=== PATIENT | female | born 1960 | race African-American/Black ===

== ENCOUNTER → 2016-03-31 | Outpatient (CLI) | payer OTHER ==
[~2016-03-31] MED LIST: AMLODIPINE BESYL5 MG PO; ASPIR 8181 MG PO; HYDROCHLOROTHIA25 M2 PO; HYDROCODONE-AP1 EAC6 PO; NEURONTIN600 MG PO; PRAVACHOL20 MG PO; PRINIVIL20 MG PO; TOPAMAX 25 MG T25 M1 PO; TOPROL XL25 MG PO; TRAMADOL 50 MG50 MG PO
== END ==
LOC: CAT 08:38
DX: R91.1 Solitary pulmonary nodule (principal)

== ENCOUNTER → 2016-10-01 | Outpatient (CLI) | payer OTHER | LOC: CAT 08:24 → RAD 09:32 | DX: R91.8 Other nonspecific abnormal finding of lung field (principal) ==

== ENCOUNTER 2016-12-07 16:31 | Emergency (ER) | payer OTHER ==
[~2016-12-07] VITALS: Ht 157.5 cm; Wt 81.2 kg
[2016-12-07 19:03] VITALS: BP 139/82
== END 2016-12-07 19:11 | disposition home or self-care (01) ==
LOC: ER 16:31
DX: R51 Headache (principal); I10 Essential (primary) hypertension; F17.210 Nicotine dependence, cigarettes, uncomplicated; Z90.711 Acquired absence of uterus with remaining cervical stump

== ENCOUNTER → 2017-02-05 | Outpatient (CLI) | payer OTHER | LOC: RAD 09:49 | DX: R91.8 Other nonspecific abnormal finding of lung field (principal) ==

== ENCOUNTER 2017-06-24 11:48 | Emergency (ER) | payer OTHER ==
[~2017-06-24] VITALS: Ht 157.5 cm; Wt 79.4 kg
--- NOTE | ~2017-06-24 | EKG ---
[place] [address] [facility] [place] [address] ELECTROCARDIOGRAM REPORT Name: VICTOR M PENN [facility] [id number] Admission: 06/24/17 Attend Phys: Discharge: 06/24/17 Date of : 62 Report #: [id number] THIS REPORT FOR: //name// [facility] ED Test Date: 2017-06-24 Test Time: 11:56:48 Pat Name: VICTOR M PENN Department: Room: Gender: F Comparator Operator: 12 : 1960 Requested By: Brandin Paez Order Number: [id number] MD: Vijay Ramirez Measurements Intervals [place] Rate: 92 P: 52 OR: 162 QRS: 62 QRSD: 92 T: 2 QT: 375 QTc: 464 Interpretive Statements Sinus rhythm Baseline wander in lead(s) V6 Compared to ECG 02/15/2016 16:30:44 T-wave abnormality no longer present Electronically Signed On 06-25-2017 8:20:29 CDT by Vijay Ramirez [email or web address] <ELECTRONICALLY SIGNED> By: Vijay Ramirez MD, [facility] 06/25/17 0820 1156 1156 Vijay Ramirez MD, [facility] /EPI
[2017-06-24] MEDS ORDERED: TRAMADOL 50 MG50 MG PO (12:10)
[2017-06-24 12:14] LABS: ABSOLUTE NEUTROPHILS 6.8 thou/uL (1.4-8.2); BASOPHILS 0.7 % (0.0-2.0); EOSINOPHILS 1.6 % (0.0-3.0); HEMATOCRIT 35.4 % (37.0-47.0); HEMOGLOBIN 12.2 gm/dL (12.0-15.0); LYMPHOCYTES 34.6 % (24.0-44.0); MCH 26.8 pg (26.0-34.0); MCHC 34.6 g/dL (28.0-37.0); MCV 77.5 fL (80.0-100.0); PLATELET COUNT 331 thou/uL (150-400); POLYS 56.1 % (36.0-66.0); RBC 4.57 mil/uL (4.20-5.00); RDW 13.4 % (10.5-14.5); WBC 12.1 thou/uL (4.0-11.0)
[2017-06-24 12:28] LABS: ANION GAP 7 mmol/L (7-16); BUN 13 mg/dL (7-18); CALCIUM 9.5 mg/dL (8.5-10.1); CHLORIDE 105 mmol/L (98-107); CO2 29 mmol/L (21-32); CREATININE 0.8 mg/dL (0.6-1.0); GLUCOSE 119 mg/dL (74-106); SODIUM 141 mmol/L (136-145)
[2017-06-24 12:36] LABS: TROPONIN-I < 0.04 ng/mL (<0.06)
[2017-06-24 15:00] VITALS: BP 126/88
== END 2017-06-24 15:01 | disposition home or self-care (01) ==
LOC: ER 11:48
PROVIDERS: Physician Assistant
DX: R07.9 Chest pain, unspecified (principal); I10 Essential (primary) hypertension; F17.210 Nicotine dependence, cigarettes, uncomplicated; Z90.710 Acquired absence of both cervix and uterus

== ENCOUNTER 2017-09-12 16:30 | Emergency (ER) | payer OTHER ==
[~2017-09-12] VITALS: Ht 157.5 cm; Wt 82.6 kg
--- NOTE | ~2017-09-12 | EKG ---
[place] [address] [facility] [place] [address] ELECTROCARDIOGRAM REPORT Name: VICTOR M PENN [facility] [id number] Admission: 09/12/17 Attend Phys: Discharge: 09/12/17 Date of : 62 Report #: [id number] THIS REPORT FOR: //name// [facility] ED Test Date: 2017-09-12 Test Time: 19:18:37 Pat Name: VICTOR M PENN Department: Room: Gender: F Campaign Assistant: MZOOK : 1960 Requested By: Brandin Paez Order Number: [id number] MD: Vijay Ramirez Measurements Intervals [place] Rate: 91 P: 53 [place]: 158 QRS: 62 QRSD: 89 T: 9 QT: 382 QTc: 471 Interpretive Statements Sinus rhythm Nonspecific ST segment abnormality Compared to ECG 06/24/2017 11:56:48 No significant changes Electronically Signed On 09-13-2017 10:18:13 CDT by Vijay Ramirez [email or web address] <ELECTRONICALLY SIGNED> By: Vijay Ramirez MD, [facility] 09/13/17 1018 1917 17 Vijay Ramirez MD, FACC /EPI
[2017-09-12 17:03] LABS: ABSOLUTE NEUTROPHILS 9.9 thou/uL (1.4-8.2); BASOPHILS 1.1 % (0.0-2.0); HEMOGLOBIN 12.6 gm/dL (12.0-15.0); LYMPHOCYTES 19.3 % (24.0-44.0); MCH 26.1 pg (26.0-34.0); MCHC 34.1 g/dL (28.0-37.0); MCV 76.5 fL (80.0-100.0); MONOCYTES 3.9 % (1.0-8.0); PLATELET COUNT 344 thou/uL (150-400); POLYS 75.7 % (36.0-66.0); RBC 4.83 mil/uL (4.20-5.00); RDW 13.7 % (10.5-14.5)
[2017-09-12 17:13] LABS: CREATININE 0.7 mg/dL (0.6-1.0); POTASSIUM 3.4 mmol/L (3.5-5.1)
[2017-09-12 17:18] LABS: ALBUMIN 4.2 g/dL (3.4-5.0); TOTAL BILIRUBIN 0.5 mg/dL (<0.1-1.0); TOTAL PROTEIN 8.3 g/dL (6.4-8.2)
[2017-09-12 18:37] LABS: URINE BILIRUBIN NEGATIVE (Negative); URINE BLOOD 2+ (Negative); URINE CLARITY CLEAR; URINE COLOR YELLOW; URINE GLUCOSE-RANDOM* NEGATIVE (Negative); URINE KETONES NEGATIVE (Negative); URINE LEUKOCYTES-REFLEX NEGATIVE (Negative); URINE NITRITE-REFLEX NEGATIVE (Negative); URINE PROTEIN (DIPSTICK) NEGATIVE (Negative); URINE UROBILINOGEN 0.2 E.U./dl (0.2-1.0)
[2017-09-12 18:45] LABS: BACTERIA-REFLEX None Seen /HPF (None Seen); CASTS None Seen /LPF (None Seen); CRYSTALS None Seen /LPF (None Seen); SQUAMOUS 0-3 Few /LPF (0-3); URINE WBC-REFLEX None Seen /HPF (0-5)
[2017-09-12] MEDS ORDERED: HYDROCODONE-AP1 EAC6 PO (19:53)
[2017-09-12 20:12] VITALS: BP 139/76
== END 2017-09-12 20:13 | disposition home or self-care (01) ==
LOC: ER 16:30
PROVIDERS: Physician Assistant
DX: R10.9 Unspecified abdominal pain (principal); R11.2 Nausea with vomiting, unspecified; I10 Essential (primary) hypertension; Z90.710 Acquired absence of both cervix and uterus; F17.210 Nicotine dependence, cigarettes, uncomplicated

== ENCOUNTER → 2017-12-28 | Outpatient (CLI) | payer OTHER ==
[~2017-12-28] MED LIST changes: +CARAFATE 1 GM TA1 G1 PO; +PROTONIX40 M1 PO
== END ==
LOC: RAD 07:31
DX: R91.1 Solitary pulmonary nodule (principal); R91.8 Other nonspecific abnormal finding of lung field; I77.810 Thoracic aortic ectasia; I10 Essential (primary) hypertension; G43.909 Migraine, unspecified, not intractable, without status migrainosus

== ENCOUNTER 2018-02-05 07:18 | Inpatient (IN) | payer OTHER ==
[2018-02-05] VITALS (7 sets, daily range): BP systolic 111–177; BP diastolic 59–95
[~2018-02-05] VITALS: Ht 157.5 cm; Wt 60.3 kg
--- NOTE | ~2018-02-05 | PATH ---
[facility] [address] [place] [address] PATHOLOGY RPT PROCEDURE Name: VICTOR M PAUL Room #: 449-I DIS IN M.R.#: [id number] Admission: 02/05/18 Date of : 62 Discharge: 02/08/18 Report #: [id number] Path Case #: [id number] [facility] Accession Number: [id number] . 01 Material submitted: . GASTRIC BX R/O H. PYLORI . 01 Clinical history: . Abd pain . 02 Diagnosis: Gastric mucosa, gastric R/O H. pylori, endoscopic biopsy: - Mild chronic inflammation. - Negative for intestinal metaplasia or atrophy. - Negative for Helicobacter pylori (properly controlled immunohistochemical stain performed). (IUV:yvette; 02/08/2018) QMS/02/08/2018 . 02 Electronically signed: . Natalie Kovacs MD, Pathologist NPI- [id number] . 01 Gross description: . The specimen is received in formalin, labeled "Victor M Paul, gastric BX", are three irregular fragments of gutierres soft tissue 0.7 x 0.5 x 0.2 cm in aggregate, entirely submitted in A1. ([facility]; 02/05/2018) SHS/SHS . 02 Pathologist provided ICD-10: K29.50 . 02 CPT . 402819, A27957 Specimen Comment: A courtesy copy of this report has been sent to Specimen Comment: [phone], , . Specimen Comment: Report sent to ,DR BOLTON / DR ASENCIO Specimen Comment: A duplicate report has been generated due to demographic updates. Performed at: 01 [facility] [address] [id number] MD Neal Kenney MD Phone: [phone] Performed at: [id number] [address] [address] PATHOLOGY RPT PROCEDURE Name: VICTOR M PAUL [place] Room #: 449-I DIS IN M.R.#: [id number] Admission: 02/05/18 Date of : 62 Discharge: 02/08/18 Report #: [id number] Path Case #: [id number] MD Natalie Kovacs MD Phone: [phone]
--- NOTE | ~2018-02-05 | EKG ---
[address] [address] ELECTROCARDIOGRAM REPORT Name: FILIVICTOR M FLORIDA Room #: 449-I ADM IN M.R.#: [id number] Admission: 02/05/18 Attend Phys: Cuate Saravia MD Discharge: Date of : 62 Report #: [id number] THIS REPORT FOR: //name// [facility] Test Date: 2018-02-06 Test Time: 11:09:51 Pat Name: VICTOR M PENN Department: Room: [facility] Gender: F Rn Bone Marrow Transplant: THOMAS : 1960 Requested By: Cuate Saravia Order Number: [id number] MD: Adam Sharma Measurements Intervals [place] Rate: 72 P: 54 DE: 136 QRS: 79 QRSD: 94 T: 25 QT: 429 QTc: 470 Interpretive Statements Sinus rhythm Probable left atrial enlargement Compared to ECG 02/04/2018 18:09:56 ST (T wave) deviation no longer present Electronically Signed On 02-07-2018 20:36:30 SENIOR SYSTEMS DEVELOPER by Adam Sharma [email or web address] <ELECTRONICALLY SIGNED> By: Adam Sharma MD 02/07/182035 08 08 Adam Sharma MD /EPI
--- NOTE | ~2018-02-05 | P ---
[facility] [place] [address] PROCEDURE REPORT Name: VICTOR M PENN KOBE Room #: 449-I ADM IN M.R.#: [id number] Admission: 02/05/18 Attend Phys: Cuate Saravia MD Discharge: Date of : 62 Report #: [id number] THIS REPORT FOR: //name// CC: Cuate Mancilla MD DATE OF SERVICE: 02/05/2018 PROCEDURE PERFORMED: Upper endoscopy with biopsies. HISTORY OF PRESENT ILLNESS: The patient is a 57-year-old female with mid epigastric and low substernal chest pain, also with nausea, vomiting, diarrhea. Symptoms began yesterday. She describes the pain as being constant. She denies any dysphagia or odynophagia. She has had a previous upper endoscopy by my partner, Dr. Altamirano in August of this year for similar symptoms, was noted to have esophageal ulcer and gastroduodenitis. The patient was placed on Protonix and Carafate. She then underwent a repeat upper endoscopy by Dr. Figueroa, which was essentially negative. The patient has been continuing to take her Protonix, does not take Carafate any further. She denies any NSAID use. She denies any blood in her stools. She does report possible fevers. Her white count is normal at 9.4. She had a CT scan of the abdomen and pelvis showing circumferential mural thickening and luminal narrowing of the mid stomach with gastric wall thickening reflecting edema, inflammation, possibly reflecting a localized gastritis. Plan is for EGD. DESCRIPTION OF PROCEDURE: The risks and benefits of the procedure were explained to the patient, those risks including but not limited to bleeding, perforation and the risk of sedation. She understood these risks and gave informed consent. Sedation was given using propofol per anesthesia. Next, using a standard Olympus upper endoscope, the scope was placed in the patient's mouth and advanced under direct vision through the esophagus, stomach and into the second portion of the duodenum. The larynx was normal in appearance. The esophagus was normal throughout. The GE junction was normal. Upon entering the stomach, a moderate amount of liquid was noted. This was aspirated away. A total of 300 mL of bilious liquid was aspirated. No obvious ulcerations or thickening of the stomach were noted. There was a mild gastritis. Biopsies were obtained to rule out H. pylori. No evidence of ulcerations or erosions. The pylorus was normal and patent. The duodenal bulb, first and second portion were all normal. The scope was then withdrawn and the procedure terminated. The patient tolerated the procedure well. IMPRESSION: 1. Moderate amount of liquid within the stomach suggesting possible gastroparesis. 2. Mild gastritis. [address] [address] PROCEDURE REPORT Name: VICTOR M PENN KOBE Room #: 449-I [facility] IN M.R.#: [id number] Admission: 02/05/18 Attend Phys: Cuate Saravia MD Discharge: Date of : 62 Report #: [id number]. Otherwise, normal upper endoscopy. RECOMMENDATIONS: 1. Await biopsy results. 2. Suspect the patient may have gastroenteritis. Plan is to admit the patient as she is having continued pain, nausea and vomiting. Supportive care, IV fluids, Zofran, p.r.n. pain medications. She has had a previous cholecystectomy. Her CT from yesterday was otherwise normal. Thank you for allowing me to participate in her care. By: 1200 2139 Madan Rodriguez MD /nt
[~2018-02-05 07:18] MED LIST changes: +NORCO 10-325 T1 EACH PO; +ONDANSETRON HCL4 M2 PO; +SENNA8.6 MG PO
[2018-02-05 09:32] LABS: ABSOLUTE NEUTROPHILS 7.5 thou/uL (1.4-8.2); BASOPHILS 0.6 % (0.0-2.0); HEMATOCRIT 36.9 % (37.0-47.0); HEMOGLOBIN 12.7 gm/dL (12.0-15.0); MCH 26.3 pg (26.0-34.0); MCHC 34.4 g/dL (28.0-37.0); MCV 76.4 fL (80.0-100.0); MONOCYTES 3.6 % (1.0-8.0); PLATELET COUNT 310 thou/uL (150-400); POLYS 79.8 % (36.0-66.0); RBC 4.82 mil/uL (4.20-5.00); RDW 13.8 % (10.5-14.5); WBC 9.4 thou/uL (4.0-11.0)
[2018-02-05 09:41] LABS: CALCIUM 8.9 mg/dL (8.5-10.1); CREATININE 0.7 mg/dL (0.6-1.0); POTASSIUM 3.3 mmol/L (3.5-5.1)
[2018-02-05 09:46] LABS: ALBUMIN 3.8 g/dL (3.4-5.0); TOTAL BILIRUBIN 0.4 mg/dL (<0.1-1.0); TOTAL PROTEIN 7.5 g/dL (6.4-8.2)
[2018-02-05 11:50] LABS: MAGNESIUM 1.8 mg/dL (1.8-2.4)
[2018-02-06 03:59] VITALS: BP 140/82
[2018-02-06 05:48] LABS: ABSOLUTE NEUTROPHILS 7.7 thou/uL (1.4-8.2); BASOPHILS 0.4 % (0.0-2.0); EOSINOPHILS 0.1 % (0.0-3.0); HEMATOCRIT 35.3 % (37.0-47.0); LYMPHOCYTES 37.3 % (24.0-44.0); MCH 26.2 pg (26.0-34.0); MCV 77.1 fL (80.0-100.0); MONOCYTES 10.4 % (1.0-8.0); PLATELET COUNT 298 thou/uL (150-400); POLYS 51.8 % (36.0-66.0); RBC 4.58 mil/uL (4.20-5.00); RDW 14.1 % (10.5-14.5); WBC 14.8 thou/uL (4.0-11.0)
[2018-02-06 06:06] LABS: ANION GAP 9 mmol/L (7-16); BUN 13 mg/dL (7-18); CALCIUM 9.2 mg/dL (8.5-10.1); CHLORIDE 102 mmol/L (98-107); CO2 27 mmol/L (21-32); CREATININE 0.7 mg/dL (0.6-1.0); GLUCOSE 69 mg/dL (74-106); MAGNESIUM 2.4 mg/dL (1.8-2.4); POTASSIUM 3.5 mmol/L (3.5-5.1); SODIUM 138 mmol/L (136-145); TROPONIN-I <0.06 ng/mL (<0.06)
[2018-02-06 07:31] VITALS: BP 172/97
[2018-02-06 14:40] LABS: % SATURATION 45 % (20-39); IRON 127 ug/dL (50-170); TIBC 284 ug/dL (250-450)
[2018-02-06 16:51] VITALS: BP 172/88
[2018-02-06 17:08] VITALS: BP 172/88
[2018-02-06 17:19] VITALS: BP 188/79
[2018-02-06 19:00] VITALS: BP 116/69
[2018-02-07 04:30] VITALS: BP 119/76
[2018-02-07 05:56] LABS: HEMATOCRIT 37.4 % (37.0-47.0); HEMOGLOBIN 12.9 gm/dL (12.0-15.0); MCH 26.4 pg (26.0-34.0); MCHC 34.5 g/dL (28.0-37.0); MCV 76.6 fL (80.0-100.0); RBC 4.89 mil/uL (4.20-5.00); RDW 13.9 % (10.5-14.5); WBC 12.7 thou/uL (4.0-11.0)
[2018-02-07 08:00] VITALS: BP 125/62
[2018-02-07 15:13] VITALS: BP 108/65
[2018-02-07 19:09] VITALS: BP 120/79
[2018-02-08 02:15] VITALS: BP 136/77
[2018-02-08 06:28] LABS: HEMATOCRIT 37.1 % (37.0-47.0); HEMOGLOBIN 12.4 gm/dL (12.0-15.0); MCH 25.9 pg (26.0-34.0); MCHC 33.4 g/dL (28.0-37.0); MCV 77.6 fL (80.0-100.0); RBC 4.78 mil/uL (4.20-5.00); RDW 13.6 % (10.5-14.5); WBC 9.6 thou/uL (4.0-11.0)
[2018-02-08 06:32] LABS: CALCIUM 9.1 mg/dL (8.5-10.1); CREATININE 0.7 mg/dL (0.6-1.0); MAGNESIUM 1.8 mg/dL (1.8-2.4); POTASSIUM 3.8 mmol/L (3.5-5.1)
[2018-02-08 07:28] VITALS: BP 135/77
[2018-02-08] MEDS ORDERED: PROTONIX40 M1 PO (09:51)
[2018-02-08 10:06] VITALS: BP 135/77
== END 2018-02-08 10:52 | disposition home or self-care (01) | DRG 392 ==
LOC: ER 07:18 → EROBS 09:22 → 4W 09:22 → ENTRNSPT 02-08 10:32 → EDTRNSPTSTS 02-08 10:39 → 4W 02-08 10:52
PROVIDERS: Emergency Medicine; Internal Medicine; Nurse Practitioner; Specialist
PROC: 0DB68ZX Excision of Stomach, Via Natural or Artificial Opening Endoscopic, Diagnostic (ICD-10-PCS; principal; 2018-02-05)
DX: A08.4 Viral intestinal infection, unspecified (principal); K29.70 Gastritis, unspecified, without bleeding; I10 Essential (primary) hypertension; E78.5 Hyperlipidemia, unspecified; E87.6 Hypokalemia; F17.210 Nicotine dependence, cigarettes, uncomplicated; Z87.11 Personal history of peptic ulcer disease; Z90.49 Acquired absence of other specified parts of digestive tract; Z90.710 Acquired absence of both cervix and uterus; Z82.49 Family history of ischemic heart disease and other diseases of the circulatory system; Z71.6 Tobacco abuse counseling
CPT/HCPCS: 10040; 62110; 62900; 70005

== ENCOUNTER 2018-02-14 15:44 | Inpatient (IN) | payer OTHER ==
[~2018-02-14] VITALS: Ht 157.5 cm; Wt 81.2 kg
--- NOTE | ~2018-02-14 | EKG ---
[address] [place] [address] ELECTROCARDIOGRAM REPORT Name: VICTOR M PENN KOBE Room #: 349-I ADM IN M.R.#: [id number] Admission: 02/14/18 Attend Phys: Aj Kay MD Discharge: Date of : 62 Report #: [id number] THIS REPORT FOR: //name// [facility] ED Test Date: 2018-02-14 Test Time: 16:04:17 Pat Name: VICTOR M PENN Department: Room: 349 Gender: F Grinding Machine Operator Automatic: ivan : 1960 Requested By: Deana Delatorre Order Number: [id number] MD: Milton Srivastava Measurements Intervals [place] Rate: 92 P: 59 TX: 144 QRS: 60 QRSD: 82 T: 17 QT: 366 QTc: 453 Interpretive Statements Sinus rhythm Left atrial enlargement Baseline wander in lead(s) V2 Compared to ECG 02/06/2018 11:09:51 No significant changes Electronically Signed On 02-14-2018 23:56:13 GEAR ROLLER by Milton Srivastava [email or web address] <ELECTRONICALLY SIGNED> By: Milton Srivastava MD 02/14/18 2356 1604 1604 Milton Srivastava MD /EPI
[2018-02-14 15:52] VITALS: BP 174/109
[2018-02-14 16:18] LABS: ABSOLUTE NEUTROPHILS 10.5 thou/uL (1.4-8.2); BASOPHILS 0.7 % (0.0-2.0); HEMATOCRIT 37.4 % (37.0-47.0); HEMOGLOBIN 12.9 gm/dL (12.0-15.0); LYMPHOCYTES 11.9 % (24.0-44.0); MCH 26.3 pg (26.0-34.0); MCHC 34.4 g/dL (28.0-37.0); MCV 76.5 fL (80.0-100.0); MONOCYTES 2.1 % (1.0-8.0); PLATELET COUNT 335 thou/uL (150-400); POLYS 85.3 % (36.0-66.0); RBC 4.89 mil/uL (4.20-5.00); RDW 13.7 % (10.5-14.5); WBC 12.3 thou/uL (4.0-11.0)
[2018-02-14 16:40] LABS: ANION GAP 10 mmol/L (7-16); BUN 9 mg/dL (7-18); CHLORIDE 102 mmol/L (98-107); CO2 26 mmol/L (21-32); CREATININE 0.8 mg/dL (0.6-1.0); GLUCOSE 149 mg/dL (74-106); POTASSIUM 3.4 mmol/L (3.5-5.1); SODIUM 138 mmol/L (136-145)
[2018-02-14 16:49] LABS: LIPASE 65 U/L (73-393); SGOT 19 U/L (15-37); SGPT 39 U/L (30-65); TOTAL BILIRUBIN 0.4 mg/dL (<0.1-1.0); TROPONIN-I <0.06 ng/mL (<0.06)
[2018-02-14 20:54] VITALS: BP 170/96
[2018-02-14 21:11] VITALS: BP 170/96
[2018-02-15 04:28] VITALS: BP 149/76
[2018-02-15 05:31] LABS: HEMATOCRIT 36.1 % (37.0-47.0); HEMOGLOBIN 12.1 gm/dL (12.0-15.0); MCH 25.8 pg (26.0-34.0); MCHC 33.6 g/dL (28.0-37.0); MCV 76.8 fL (80.0-100.0); RBC 4.7 mil/uL (4.20-5.00); RDW 13.9 % (10.5-14.5); WBC 13.7 thou/uL (4.0-11.0)
[2018-02-15 05:41] LABS: CALCIUM 9.1 mg/dL (8.5-10.1); CREATININE 0.6 mg/dL (0.6-1.0); POTASSIUM 3.1 mmol/L (3.5-5.1)
[2018-02-15 08:00] VITALS: BP 156/66
[2018-02-15 19:48] VITALS: BP 158/99
[2018-02-16 04:15] LABS: BASOPHILS 0.3 % (0.0-2.0); EOSINOPHILS 0.1 % (0.0-3.0); HEMATOCRIT 37.6 % (37.0-47.0); LYMPHOCYTES 16.4 % (24.0-44.0); MCH 26.5 pg (26.0-34.0); MCHC 34.5 g/dL (28.0-37.0); MCV 76.8 fL (80.0-100.0); MONOCYTES 6.3 % (1.0-8.0); PLATELET COUNT 343 thou/uL (150-400); POLYS 76.9 % (36.0-66.0); RBC 4.89 mil/uL (4.20-5.00); RDW 13.6 % (10.5-14.5)
[2018-02-16 04:40] LABS: CALCIUM 9.5 mg/dL (8.5-10.1); CREATININE 0.6 mg/dL (0.6-1.0); POTASSIUM 3.4 mmol/L (3.5-5.1)
[2018-02-16 07:44] VITALS: BP 168/93
[2018-02-16 12:57] VITALS: BP 168/93
[2018-02-16 16:35] VITALS: BP 150/114
[2018-02-16 18:45] VITALS: BP 168/107
[2018-02-16 23:06] VITALS: BP 171/95
[2018-02-17 08:22] VITALS: BP 139/82
[2018-02-17 22:08] VITALS: BP 120/80
[2018-02-18 07:16] VITALS: BP 154/96
[2018-02-18] MEDS ORDERED: REGLAN 10 MG TA10 MG PO (16:16)
[2018-02-18] MEDS ORDERED: BENTYL 10 MG CA10 M1 PO (16:16)
[2018-02-18] MEDS ORDERED: AMITRIPTYLINE H10 M1 PO (16:16)
[2018-02-18] MEDS ORDERED: ACETAMINOPHEN325 M1 PO (16:16)
[2018-02-18 18:12] VITALS: BP 154/96
== END 2018-02-18 18:40 | disposition home or self-care (01) | DRG 391 ==
LOC: ER 15:44 → EROBS 20:04 → 4E 20:04 → 3W 21:06 → 4E 02-15 07:55 → SICU 02-16 19:02
PROVIDERS: Family Medicine; Nurse Practitioner Family; Student in an Organized Health Care Education/Training Program
DX: A08.4 Viral intestinal infection, unspecified (principal); E43 Unspecified severe protein-calorie malnutrition; K58.9 Irritable bowel syndrome, unspecified; I10 Essential (primary) hypertension; E78.5 Hyperlipidemia, unspecified; F17.210 Nicotine dependence, cigarettes, uncomplicated; D72.829 Elevated white blood cell count, unspecified; K31.84 Gastroparesis; E87.6 Hypokalemia; K44.9 Diaphragmatic hernia without obstruction or gangrene; K27.9 Peptic ulcer, site unspecified, unspecified as acute or chronic, without hemorrhage or perforation; Z90.49 Acquired absence of other specified parts of digestive tract; Z88.8 Allergy status to other drugs, medicaments and biological substances; Z91.041 Radiographic dye allergy status; Z82.49 Family history of ischemic heart disease and other diseases of the circulatory system; Z71.6 Tobacco abuse counseling; Z28.21 Immunization not carried out because of patient refusal
CPT/HCPCS: 10080; 10084; 15002

== ENCOUNTER 2018-03-22 18:25 | Emergency (ER) | payer OTHER ==
[~2018-03-22] VITALS: Ht 157.5 cm; Wt 79.8 kg
[~2018-03-22 18:25] MED LIST changes: +ACETAMINOPHEN325 M1 PO; +AMITRIPTYLINE H10 M1 PO; +BENTYL 10 MG CA10 M1 PO; +REGLAN 10 MG TA10 MG PO
[2018-03-22 18:55] LABS: URINE CLARITY CLEAR; URINE COLOR YELLOW; URINE PROTEIN (DIPSTICK) 2+ (Negative); URINE SPECIFIC GRAVITY > 1.030 (1.005-1.035)
[2018-03-22 18:56] LABS: URINE BILIRUBIN NEGATIVE (Negative); URINE BLOOD 3+ (Negative); URINE GLUCOSE-RANDOM* NEGATIVE (Negative); URINE KETONES TRACE (Negative); URINE LEUKOCYTES-REFLEX NEGATIVE (Negative); URINE NITRITE-REFLEX NEGATIVE (Negative); URINE UROBILINOGEN 0.2 E.U./dl (0.2-1.0)
[2018-03-22] MEDS ORDERED: ADULT ASPIRIN81 MG PO (18:57)
[2018-03-22 19:04] LABS: AMORPHOUS URATES Moderate /LPF (None Seen); BACTERIA-REFLEX None Seen /HPF (None Seen); HYALINE CASTS 0-3 Few /LPF (None Seen); MUCUS >6 Heavy strn/LPF (None Seen); SQUAMOUS >10 Many /LPF (0-3); URINE RBC >20 Many /HPF (0-2); URINE WBC-REFLEX 0-5 Rare /HPF (0-5)
[2018-03-22 19:23] LABS: ABSOLUTE NEUTROPHILS 9.1 thou/uL (1.4-8.2); BASOPHILS 0.9 % (0.0-2.0); HEMATOCRIT 36.4 % (37.0-47.0); HEMOGLOBIN 12.8 gm/dL (12.0-15.0); LYMPHOCYTES 14.2 % (24.0-44.0); MCH 26.8 pg (26.0-34.0); MCHC 35.1 g/dL (28.0-37.0); MCV 76.4 fL (80.0-100.0); MONOCYTES 3.3 % (1.0-8.0); PLATELET COUNT 339 thou/uL (150-400); POLYS 81.6 % (36.0-66.0); RBC 4.76 mil/uL (4.20-5.00); RDW 13.8 % (10.5-14.5); WBC 11.2 thou/uL (4.0-11.0)
[2018-03-22 19:31] LABS: CALCIUM 9.5 mg/dL (8.5-10.1); CREATININE 0.8 mg/dL (0.6-1.0); POTASSIUM 3.2 mmol/L (3.5-5.1)
[2018-03-22 19:36] LABS: TOTAL BILIRUBIN 0.4 mg/dL (<0.1-1.0)
[2018-03-22] MEDS ORDERED: PHENERGAN 25 MG25 M1 PO (20:15)
[2018-03-22 20:41] VITALS: BP 130/75
--- NOTE | 2018-03-23 10:06 | EKG ---
[facility] [address] [facility] [address] [place] [address] ELECTROCARDIOGRAM REPORT Name: VICTOR M PENN Room #: [facility]#: [id number] Admission: 03/22/18 Attend Phys: Discharge: 03/22/18 Date of : 62 Report #: [id number] THIS REPORT FOR: //name// [facility] ED Test Date: 2018-03-22 Test Time: 19:15:13 Pat Name: VICTOR M PENN Department: Room: Gender: F Senior Electronics Engineer: MITA : 1960 Requested By: Barndin Paez Order Number: [id number] MD: Vijay Ramirez Measurements Intervals [place] Rate: 86 P: 55 [place]: 157 QRS: 67 QRSD: 84 T: -9 QT: 421 QTc: 504 Interpretive Statements Sinus rhythm Borderline T abnormalities, diffuse leads Borderline prolonged QT interval Compared to ECG 02/14/2018 16:04:17 T-wave abnormality now present Electronically Signed On 03-23-2018 10:05:49 DRAWBENCH OPERATOR HELPER by Vijay Ramirez [email or web address] <ELECTRONICALLY SIGNED> By: Vijay Ramirez MD, [facility] 03/23/18 1005 14 14 Vijay Ramirez MD, [facility] /EPI
== END 2018-03-22 20:47 | disposition home or self-care (01) ==
LOC: ER 18:25
PROVIDERS: Physician Assistant
DX: K31.84 Gastroparesis (principal); I10 Essential (primary) hypertension; E78.5 Hyperlipidemia, unspecified; Z90.49 Acquired absence of other specified parts of digestive tract; F17.210 Nicotine dependence, cigarettes, uncomplicated; Z91.041 Radiographic dye allergy status

== ENCOUNTER 2018-03-23 22:17 | Emergency (ER) | payer OTHER ==
[~2018-03-23] VITALS: Ht 157.5 cm; Wt 79.8 kg
[~2018-03-23 22:17] MED LIST changes: +ADULT ASPIRIN81 MG PO; +PHENERGAN 25 MG25 M1 PO
[2018-03-23 23:26] LABS: ABSOLUTE NEUTROPHILS 10.7 thou/uL (1.4-8.2); BASOPHILS 0.4 % (0.0-2.0); HEMATOCRIT 38.8 % (37.0-47.0); HEMOGLOBIN 13.4 gm/dL (12.0-15.0); LYMPHOCYTES 18.8 % (24.0-44.0); MCH 26.4 pg (26.0-34.0); MCHC 34.4 g/dL (28.0-37.0); MCV 76.6 fL (80.0-100.0); MONOCYTES 4.9 % (1.0-8.0); PLATELET COUNT 366 thou/uL (150-400); POLYS 75.9 % (36.0-66.0); RBC 5.07 mil/uL (4.20-5.00); RDW 13.4 % (10.5-14.5); WBC 14.1 thou/uL (4.0-11.0)
[2018-03-23 23:30] LABS: CALCIUM 9.6 mg/dL (8.5-10.1); CREATININE 0.7 mg/dL (0.6-1.0); POTASSIUM 3.3 mmol/L (3.5-5.1)
[2018-03-23 23:36] LABS: ALBUMIN 4.3 g/dL (3.4-5.0); TOTAL BILIRUBIN 0.4 mg/dL (<0.1-1.0); TOTAL PROTEIN 8.5 g/dL (6.4-8.2)
[2018-03-24 03:18] LABS: URINE BILIRUBIN NEGATIVE (Negative); URINE BLOOD 3+ (Negative); URINE CLARITY CLEAR; URINE COLOR YELLOW; URINE GLUCOSE-RANDOM* NEGATIVE (Negative); URINE KETONES NEGATIVE (Negative); URINE LEUKOCYTES-REFLEX NEGATIVE (Negative); URINE NITRITE-REFLEX NEGATIVE (Negative); URINE PROTEIN (DIPSTICK) 1+ (Negative); URINE SPECIFIC GRAVITY 1.025 (1.005-1.035); URINE UROBILINOGEN 0.2 E.U./dl (0.2-1.0)
[2018-03-24] MEDS ORDERED: ULTRAM 50MG TAB50 MG PO (03:20)
[2018-03-24] MEDS ORDERED: ZOFRAN ODT4 MG DISSOLVE (03:20)
[2018-03-24] MEDS ORDERED: PROTONIX40 M1 PO (03:20)
[2018-03-24 03:27] LABS: CASTS None Seen /LPF (None Seen); MUCUS 0-3 Light strn/LPF (None Seen); SQUAMOUS 0-3 Few /LPF (0-3); URINE RBC 3-10 Few /HPF (0-2); URINE WBC-REFLEX 0-5 Rare /HPF (0-5)
[2018-03-24 03:28] LABS: BACTERIA-REFLEX 1-9 Few /HPF (None Seen); CRYSTALS None Seen /LPF (None Seen)
[2018-03-24] MEDS ORDERED: CARAFATE 1 GM TA1 G1 PO (03:39)
[2018-03-24 03:51] VITALS: BP 145/88
--- NOTE | 2018-03-24 08:12 | EKG ---
[place] [address] [employer] [facility] [place] [address] ELECTROCARDIOGRAM REPORT Name: VICTOR M PENN Room #: DEP [facility]#: [id number] Admission: 03/23/18 Attend Phys: Discharge: 03/24/18 Date of : 62 Report #: [id number] THIS REPORT FOR: //name// [facility] ED Test Date: 2018-03-23 Test Time: 22:23:03 Pat Name: VICTOR M PENN Department: Room: Gender: F Game Operator: MITA : 1960 Requested By: Jordan Arreguin Order Number: [id number] MD: Vijay Ramirez Measurements Intervals [place] Rate: 93 P: 67 VT: 138 QRS: 72 QRSD: 86 T: -13 QT: 378 QTc: 471 Interpretive Statements Sinus rhythm Left atrial enlargement Nonspecific ST segment abnormality Compared to ECG 03/22/2018 19:15:13 Nonspecific change in the ST and T-wave segments Electronically Signed On 03-24-2018 8:12:33 FLOODPLAIN MANAGER by Vijay Ramirez [email or web address] <ELECTRONICALLY SIGNED> By: Vijay Ramirez MD, [facility] 03/24/1812 22 22 Vijay Ramirez MD, [facility] /EPI
== END 2018-03-24 03:53 | disposition home or self-care (01) ==
LOC: ER 22:17
PROVIDERS: Emergency Medicine
DX: K29.70 Gastritis, unspecified, without bleeding (principal); I10 Essential (primary) hypertension; E78.5 Hyperlipidemia, unspecified; Z90.49 Acquired absence of other specified parts of digestive tract; F17.210 Nicotine dependence, cigarettes, uncomplicated; Z91.041 Radiographic dye allergy status

== ENCOUNTER 2019-06-02 16:58 | Emergency (ER) | payer OTHER ==
[~2019-06-02] VITALS: Ht 157.5 cm; Wt 80.3 kg
[~2019-06-02 16:58] MED LIST changes: +ULTRAM 50MG TAB50 MG PO; +ZOFRAN ODT4 MG DISSOLVE
[2019-06-02] MEDS ORDERED: TOPROL XL25 MG PO (17:13)
[2019-06-02] MEDS ORDERED: IMDUR 30 MG TAB30 M1 PO ×2 (17:14)
[2019-06-02] MEDS ORDERED: BENTYL 10 MG CA10 MG PO (17:14)
[2019-06-02 18:00] LABS: AMP/METHAMP Negative (Negative); BARBITURATES Negative (Negative); BENZODIAZEPINES Negative (Negative); COCAINE Negative (Negative); METHADONE Negative (Negative); OPIATES POSITIVE (Negative); PCP Negative (Negative)
[2019-06-02 18:41] LABS: ABSOLUTE NEUTROPHILS 4.8 thou/uL (1.4-8.2); EOSINOPHILS 1.3 % (0.0-3.0); HEMATOCRIT 36.2 % (37.0-47.0); HEMOGLOBIN 12.1 gm/dL (12.0-15.0); LYMPHOCYTES 39.2 % (24.0-44.0); MCH 26.4 pg (26.0-34.0); MCHC 33.3 g/dL (28.0-37.0); MCV 79.2 fL (80.0-100.0); MONOCYTES 7.7 % (1.0-8.0); PLATELET COUNT 313 thou/uL (150-400); POLYS 50.8 % (36.0-66.0); RBC 4.58 mil/uL (4.20-5.00); RDW 14.2 % (10.5-14.5); WBC 9.5 thou/uL (4.0-11.0)
[2019-06-02 18:44] LABS: ANION GAP 6 mmol/L (7-16); BUN 15 mg/dL (7-18); CALCIUM 9.2 mg/dL (8.5-10.1); CHLORIDE 105 mmol/L (98-107); CO2 28 mmol/L (21-32); CREATININE 0.7 mg/dL (0.6-1.0); GLUCOSE 98 mg/dL (74-106); POTASSIUM 3.9 mmol/L (3.5-5.1); SODIUM 139 mmol/L (136-145)
[2019-06-02 18:55] LABS: ALBUMIN 3.6 g/dL (3.4-5.0); MAGNESIUM 1.8 mg/dL (1.8-2.4); SGOT 26 U/L (15-37); SGPT 36 U/L (30-65); TOTAL BILIRUBIN 0.5 mg/dL (<0.1-1.0); TOTAL PROTEIN 7.4 g/dL (6.4-8.2); TROPONIN-I <0.06 ng/mL (<0.06)
[2019-06-02 21:46] VITALS: BP 148/89
--- NOTE | 2019-06-03 09:11 | EKG ---
[facility] [place] [address] ELECTROCARDIOGRAM REPORT Name: VICTOR M PENN [facility] [id number] Admission: 06/02/19 Attend Phys: Discharge: 06/02/19 Date of : 62 Report #: [id number] THIS REPORT FOR: cc: Giovanna Mancilla MD, Michelle R. MD Lundgren,Vijay Hernandez MD [facility] THIS REPORT FOR: //name// [facility] ED Test Date: 2019-06-02 Test Time: 18:02:09 Pat Name: VICTOR M PENN Department: Room: Gender: Arts And Crafts Teacher: [facility] : 1960 Requested By: Markie Bone Order Number: [id number] MD: Vijay Ramirez Measurements Intervals [place] Rate: 73 P: 56 AR: 150 QRS: 63 QRSD: 94 T: 34 QT: 405 QTc: 447 Interpretive Statements Sinus arrhythmia No significant abnormality Compared to ECG 03/23/2018 22:23:03 No significant change was found Electronically Signed On 06-03-2019 9:10:30 CDT by Vijay Ramirez [email or web address] <ELECTRONICALLY SIGNED> By: Vijay Ramirez MD, FAC 06/03/19 0910 180 01 Vijay Ramirez MD, [facility] /EPI
== END 2019-06-02 21:48 | disposition home or self-care (01) ==
LOC: ER 16:58
PROVIDERS: Emergency Medicine
DX: R07.89 Other chest pain (principal); R42 Dizziness and giddiness; I10 Essential (primary) hypertension; E78.5 Hyperlipidemia, unspecified; F17.210 Nicotine dependence, cigarettes, uncomplicated; Z91.041 Radiographic dye allergy status; Z88.8 Allergy status to other drugs, medicaments and biological substances; Z79.82 Long term (current) use of aspirin; Z79.899 Other long term (current) drug therapy

== ENCOUNTER 2019-11-21 14:35 | Emergency (ER) | payer OTHER ==
[~2019-11-21] VITALS: Ht 157.5 cm; Wt 79.4 kg
[~2019-11-21 14:35] MED LIST changes: +BENTYL 10 MG CA10 MG PO; +IMDUR 30 MG TAB30 M1 PO
[2019-11-21] MEDS ORDERED: NAPROSYN500 MG PO (19:19)
[2019-11-21 19:40] VITALS: BP 134/80
== END 2019-11-21 19:40 | disposition home or self-care (01) ==
LOC: ER 14:35
DX: M25.461 Effusion, right knee (principal); M79.651 Pain in right thigh; M25.551 Pain in right hip; R42 Dizziness and giddiness; R07.9 Chest pain, unspecified; I10 Essential (primary) hypertension; E78.5 Hyperlipidemia, unspecified; F17.210 Nicotine dependence, cigarettes, uncomplicated; Z91.041 Radiographic dye allergy status; Z88.8 Allergy status to other drugs, medicaments and biological substances; Z79.82 Long term (current) use of aspirin; Z79.899 Other long term (current) drug therapy; Z90.49 Acquired absence of other specified parts of digestive tract; Z90.711 Acquired absence of uterus with remaining cervical stump

== ENCOUNTER → 2019-12-26 | Outpatient (CLI) | payer OTHER ==
[~2019-12-26] MED LIST changes: +NAPROSYN500 MG PO
== END ==
LOC: RAD 12:25
PROVIDERS: ATTEND Internal Medicine
DX: R06.02 Shortness of breath (principal)

== ENCOUNTER → 2020-02-02 | Outpatient (CLI) | payer OTHER | LOC: NUC 02-01 08:05 | PROVIDERS: ATTEND Internal Medicine | DX: I25.10 Atherosclerotic heart disease of native coronary artery without angina pectoris (principal) ==

== ENCOUNTER 2020-04-05 17:05 | Emergency (ER) | payer OTHER ==
[~2020-04-05] VITALS: Ht 157.5 cm; Wt 72.6 kg
[2020-04-05] MEDS ORDERED: AZITHROMYCIN 2250 MG PO (17:57)
[2020-04-05] MEDS ORDERED: BENTYL 10 MG CA10 M1 PO (17:57)
[2020-04-05 18:14] LABS: ABSOLUTE NEUTROPHILS 7.3 thou/uL (1.4-8.2); BASOPHILS 1.4 % (0.0-2.0); EOSINOPHILS 0.3 % (0.0-3.0); HEMATOCRIT 35.6 % (37.0-47.0); MCH 26.1 pg (26.0-34.0); MCHC 33.7 g/dL (28.0-37.0); MCV 77.4 fL (80.0-100.0); MONOCYTES 8.4 % (1.0-8.0); PLATELET COUNT 349 thou/uL (150-400); POLYS 62.9 % (36.0-66.0); RBC 4.59 mil/uL (4.20-5.00); RDW 13.7 % (10.5-14.5); WBC 11.7 thou/uL (4.0-11.0)
[2020-04-05 18:25] LABS: ANION GAP 9 mmol/L (7-16); BUN 11 mg/dL (7-18); CHLORIDE 103 mmol/L (98-107); CO2 28 mmol/L (21-32); CREATININE 0.8 mg/dL (0.6-1.0); GLUCOSE 95 mg/dL (74-106); POTASSIUM 3.4 mmol/L (3.5-5.1); SODIUM 140 mmol/L (136-145)
[2020-04-05 18:30] LABS: TROPONIN-I <0.06 ng/mL (<0.06)
[2020-04-05] MEDS ORDERED: ATIVAN0.5 M1 PO (20:44)
[2020-04-05] MEDS ORDERED: ONDANSETRON HCL4 M2 PO (20:44)
[2020-04-05 20:47] VITALS: BP 112/54
--- NOTE | 2020-04-06 07:20 | EKG ---
[place] [address] [facility] [place] [address] ELECTROCARDIOGRAM REPORT Name: VICTOR M PENN [facility] [id number] Admission: 04/05/20 Attend Phys: Discharge: 04/05/20 Date of : 62 Report #: [id number] [facility] ED Test Date: 2020-04-05 Test Time: 17:57:37 Pat Name: VICTOR M PENN Department: Room: Gender: F Actuarial Internship: royce : 1960 Requested By: Dimitrios Mclain Order Number: [id number] MD: Catrachito Webb Measurements Intervals [place] Rate: 81 P: 67 MD: 160 QRS: 64 QRSD: 88 T: 5 QT: 387 QTc: 450 Interpretive Statements Sinus rhythm Left atrial enlargement Compared to ECG 06/02/2019 18:02:09 Atrial abnormality now present Sinus arrhythmia no longer present Electronically Signed On 04-06-2020 7:20:40 WEAVER DOBBY LOOM by Catrachito Webb [email or web address] <ELECTRONICALLY SIGNED> By: Catrachito Webb MD, [facility] 04/06/20 0720 1757 1757 Catrachito Webb MD, FACC /EPI
== END 2020-04-05 20:52 | disposition home or self-care (01) ==
LOC: ER 17:05
PROVIDERS: Nurse Practitioner
DX: R42 Dizziness and giddiness (principal); R51.9 Headache, unspecified; I10 Essential (primary) hypertension; E78.5 Hyperlipidemia, unspecified; F17.210 Nicotine dependence, cigarettes, uncomplicated; Z91.041 Radiographic dye allergy status; Z79.899 Other long term (current) drug therapy; Z79.2 Long term (current) use of antibiotics; Z87.11 Personal history of peptic ulcer disease; Z90.49 Acquired absence of other specified parts of digestive tract; Z98.890 Other specified postprocedural states

== ENCOUNTER 2020-06-12 18:11 | Emergency (ER) | payer OTHER ==
[~2020-06-12] VITALS: Ht 157.5 cm; Wt 74.8 kg
[~2020-06-12 18:11] MED LIST changes: +ATIVAN0.5 M1 PO; +AZITHROMYCIN 2250 MG PO
[2020-06-12 19:16] LABS: ABSOLUTE NEUTROPHILS 6.7 thou/uL (1.4-8.2); BASOPHILS 1.7 % (0.0-2.0); EOSINOPHILS 1.3 % (0.0-3.0); HEMATOCRIT 34.9 % (37.0-47.0); HEMOGLOBIN 11.7 gm/dL (12.0-15.0); LYMPHOCYTES 32.6 % (24.0-44.0); MCH 26.5 pg (26.0-34.0); MCHC 33.6 g/dL (28.0-37.0); MCV 78.8 fL (80.0-100.0); MONOCYTES 5.9 % (1.0-8.0); PLATELET COUNT 347 thou/uL (150-400); POLYS 58.5 % (36.0-66.0); RBC 4.42 mil/uL (4.20-5.00); RDW 13.7 % (10.5-14.5); WBC 11.5 thou/uL (4.0-11.0)
[2020-06-12 19:33] LABS: ANION GAP 10 mmol/L (7-16); BUN 16 mg/dL (7-18); CALCIUM 9.7 mg/dL (8.5-10.1); CHLORIDE 101 mmol/L (98-107); CO2 27 mmol/L (21-32); CREATININE 0.8 mg/dL (0.6-1.0); GLUCOSE 115 mg/dL (74-106); POTASSIUM 3.7 mmol/L (3.5-5.1); SODIUM 138 mmol/L (136-145)
[2020-06-12 19:44] LABS: ALBUMIN 4.1 g/dL (3.4-5.0); LIPASE 89 U/L (73-393); SGOT 21 U/L (15-37); SGPT 23 U/L (14-59); TOTAL BILIRUBIN 0.2 mg/dL (0.2-1.0); TOTAL PROTEIN 8.2 g/dL (6.4-8.2); TROPONIN-I <0.06 ng/mL (<0.06)
[2020-06-12] MEDS ORDERED: NORCO5 PO (20:50)
[2020-06-12 21:07] VITALS: BP 128/82
--- NOTE | 2020-06-13 07:03 | EKG ---
[facility] [address] [facility] [place] [address] ELECTROCARDIOGRAM REPORT Name: VICTOR M PENN Room #: DEP [facility]#: [id number] Admission: 06/12/20 Attend Phys: Discharge: 06/12/20 Date of : 62 Report #: [id number] [facility] Test Date: 2020-06-12 Test Time: 18:24:57 Pat Name: VICTOR M PENN Department: Room: Gender: F Social Media Analyst: MITA : 1960 Requested By: Nicolás Duarte Order Number: [id number] MD: Catrachito Webb Measurements Intervals [place] Rate: 94 P: 72 NE: 152 QRS: 61 QRSD: 83 T: -17 QT: 355 QTc: 444 Interpretive Statements Sinus rhythm Left atrial enlargement Low voltage, precordial leads Borderline T abnormalities, inferior leads Compared to ECG 04/05/2020 17:57:37 Low QRS voltage now present T-wave abnormality now present Electronically Signed On 06-13-2020 7:03:25 CDT by Catrachito Webb [email or web address] <ELECTRONICALLY SIGNED> By: Catrachito Webb MD, [facility] 06/13/20702 23 23 Catrachito Webb MD, [facility] /EPI
== END 2020-06-12 21:07 | disposition home or self-care (01) ==
LOC: ER 18:11
PROVIDERS: Emergency Medicine
DX: R07.9 Chest pain, unspecified (principal); I10 Essential (primary) hypertension; E78.5 Hyperlipidemia, unspecified; F17.210 Nicotine dependence, cigarettes, uncomplicated; Z90.49 Acquired absence of other specified parts of digestive tract; Z90.710 Acquired absence of both cervix and uterus; Z79.899 Other long term (current) drug therapy; Z79.82 Long term (current) use of aspirin; Z88.8 Allergy status to other drugs, medicaments and biological substances

== ENCOUNTER 2021-01-05 21:02 | Emergency (ER) | payer OTHER ==
[~2021-01-05] VITALS: Ht 157.5 cm; Wt 79.4 kg
[~2021-01-05 21:02] MED LIST changes: +NORCO5 PO
[2021-01-05] MEDS ORDERED: PRILOSEC10 MG PO (21:13)
[2021-01-05] MEDS ORDERED: SPIRONOLACTONE50 MG PO (21:13)
[2021-01-05 23:34] LABS: ABSOLUTE NEUTROPHILS 5.1 thou/uL (1.4-8.2); EOSINOPHILS 1.3 % (0.0-3.0); HEMATOCRIT 35.6 % (37.0-47.0); LYMPHOCYTES 40.9 % (24.0-44.0); MCH 26.4 pg (26.0-34.0); MCHC 33.7 g/dL (28.0-37.0); MCV 78.2 fL (80.0-100.0); MONOCYTES 7.7 % (1.0-8.0); PLATELET COUNT 289 thou/uL (150-400); POLYS 49.1 % (36.0-66.0); RBC 4.55 mil/uL (4.20-5.00); RDW 13.7 % (10.5-14.5); WBC 10.4 thou/uL (4.0-11.0)
[2021-01-05 23:37] LABS: ANION GAP 5 mmol/L (7-16); BUN 13 mg/dL (7-18); CALCIUM 8.7 mg/dL (8.5-10.1); CHLORIDE 107 mmol/L (98-107); CO2 29 mmol/L (21-32); CREATININE 0.8 mg/dL (0.6-1.0); GLUCOSE 99 mg/dL (74-106); POTASSIUM 4.1 mmol/L (3.5-5.1); SODIUM 141 mmol/L (136-145)
[2021-01-05 23:47] LABS: ALBUMIN 3.6 g/dL (3.4-5.0); DIRECT BILIRUBIN < 0.1 mg/dL (<0.1-0.2); SGOT 17 U/L (15-37); SGPT 22 U/L (14-59); TOTAL BILIRUBIN 0.3 mg/dL (0.2-1.0); TOTAL PROTEIN 7.4 g/dL (6.4-8.2)
[2021-01-06] MEDS ORDERED: REGLAN 5 MG TAB5 MG PO (01:47)
[2021-01-06 01:55] VITALS: BP 142/85
--- NOTE | 2021-01-07 07:31 | EKG ---
[place] [address] [address] [facility] [place] [address] ELECTROCARDIOGRAM REPORT Name: VICTOR M PENN Room #: DEP [facility]#: [id number] Admission: 01/05/21 Attend Phys: Discharge: 01/06/21 Date of : 62 Report #: [id number] [facility] ED Test Date: 2021-01-05 Test Time: 21:10:09 Pat Name: VICTOR M PENN Department: Room: Gender: F Promotions Assistant Sales Marketing: lyla : 1960 Requested By: Jacquelyn Dasilva Order Number: [id number] MD: Catrachito Webb Measurements Intervals [place] Rate: 85 P: 67 MT: 157 QRS: 63 QRSD: 85 T: 11 QT: 402 QTc: 478 Interpretive Statements Sinus rhythm Left atrial enlargement Borderline T abnormalities, anterior leads Borderline prolonged QT interval Baseline wander in lead(s) V3 Compared to ECG 06/12/2020 18:24:57 No significant changes Electronically Signed On 01-07-2021 7:31:19 CDT by Catrachito Webb [email or web address] <ELECTRONICALLY SIGNED> By: Catrachito Webb MD, [facility] 01/07/21 0731 09 09 Catrachito Webb MD, FAC /EPI
== END 2021-01-06 01:55 | disposition home or self-care (01) ==
LOC: ER 21:02
PROVIDERS: Emergency Medicine
DX: G43.909 Migraine, unspecified, not intractable, without status migrainosus (principal); R07.89 Other chest pain; I10 Essential (primary) hypertension; E78.5 Hyperlipidemia, unspecified; K21.9 Gastro-esophageal reflux disease without esophagitis; K31.84 Gastroparesis; F17.210 Nicotine dependence, cigarettes, uncomplicated; Z90.49 Acquired absence of other specified parts of digestive tract; Z90.710 Acquired absence of both cervix and uterus; Z79.1 Long term (current) use of non-steroidal anti-inflammatories (NSAID); Z79.891 Long term (current) use of opiate analgesic; Z79.899 Other long term (current) drug therapy; Z79.82 Long term (current) use of aspirin; Z88.8 Allergy status to other drugs, medicaments and biological substances; Z91.041 Radiographic dye allergy status

== ENCOUNTER → 2021-03-01 | Outpatient (CLI) | payer OTHER ==
[~2021-03-01] VITALS: Ht 157.5 cm; Wt 81.6 kg
[~2021-03-01] MED LIST changes: +EFFIENT10 MG PO; +HYDROCHLOROTHIA25 M1 PO; +PRILOSEC OTC20 MG PO; +PRILOSEC10 MG PO; +REGLAN 5 MG TAB5 MG PO; +ROSUVASTATIN CA20 MG PO; +SPIRONOLACTONE50 MG PO; +TRAMADOL HCL100 MG PO; +ZETIA10 MG PO
[2021-03-01 08:48] VITALS: BP 135/89
--- NOTE | 2021-03-01 09:05 | NUR ---
Pain Clinic Assessment: 1. History of Osteoarthritis: Not Applicable History of Rheumatoid Arthritis: Not Applicable 2. Height: 5 ft. 2 in. 157.5 cm. Weight: 180.0 lb. oz. 81.648 kg. Patient's BMI: 32.9 3. Vital Signs: BP: 135/89 Pulse: 77 Resp: 14 Temp: 02 Sat: 98 ECG Mon: 4. Pain Intensity: 9 5. Fall Risk: Dizziness: Y Needs help standing or walking: N Fallen in the last 3 months: N Fall risk comments: 6. Patient on Blood Thinner: EFFIENT 7. History of Hypertension: Y 8. Opioid Therapy greater than 6 weeks: Opiate Contract Signed: 9. Risk Assessment Tool Provided: 0 LOW RISK 10. Functional Assessment Tool: 11. Recreational Drug Use: Never Drug Type: Tobacco Use: Current Every Day Smoker Tobacco Type: Cigarettes Amount or Packs/day: 4 CIGGS How Many Years: Alcohol Use: Yes Frequency: Monthly Quant: 1
== END ==
LOC: PAIN 08:02
PROVIDERS: ATTEND Anesthesiology Pain Medicine
DX: R51.9 Headache, unspecified (principal); R07.9 Chest pain, unspecified; I10 Essential (primary) hypertension; Z79.899 Other long term (current) drug therapy; Z88.8 Allergy status to other drugs, medicaments and biological substances; F17.200 Nicotine dependence, unspecified, uncomplicated; F10.10 Alcohol abuse, uncomplicated